=== PATIENT | female | born 1960 | race Caucasian/White ===

== ENCOUNTER 2019-02-10 10:09 | Outpatient (CLI) | payer BC ==
--- NOTE | 2019-02-14 18:05 | MMO ---
Bilateral MAMMO Bilat Screen [facility]. CLINICAL HISTORY: Patient is 59 years old and is seen for screening. The patient has the following family history of breast cancer: paternal aunt, at age 80. VIEWS: The views performed were: bilateral craniocaudal with tomosynthesis and bilateral mediolateral oblique with tomosynthesis. FILMS COMPARED: The present examination has been compared to prior imaging studies performed at [facility] on 11/13/2016, at [facility] on 01/04/2018, and at [facility] on 07/26/2013 and 09/05/2014. MAMMOGRAM FINDINGS: There are scattered fibroglandular densities. There are no suspicious masses, suspicious calcifications, or new areas of architectural distortion. IMPRESSION: THERE IS NO MAMMOGRAPHIC EVIDENCE OF MALIGNANCY. A ROUTINE FOLLOW-UP MAMMOGRAM IN 1 YEAR IS RECOMMENDED. THE RESULTS OF THIS EXAM WERE SENT TO THE PATIENT. ACR BI-RADS Category 1 - Negative MAMMOGRAPHY NOTE: 1. A negative mammogram report should not delay a biopsy if a dominant of clinically suspicious mass is present. 2. Approximately 10% to 15% of breast cancers are not detected by mammography. 3. Adenosis and dense breasts may obscure an underlying neoplasm.
== END 2019-02-10 10:10 | disposition home or self-care (01) ==
LOC: BICMAMMO 10:09
PROVIDERS: ATTEND Family Medicine
DX: Z12.31 Encounter for screening mammogram for malignant neoplasm of breast (principal); Z80.3 Family history of malignant neoplasm of breast
CPT/HCPCS: 77063; 77067

== ENCOUNTER 2019-03-07 14:24 | Outpatient (CLI) | payer BC ==
[2019-03-07 17:18] LABS: Anion Gap 14 mmol/L (10-20); BUN (Urea Nitrogen) 12 mg/dL (9.8-20.1); Calc. Creatinine Clearance 0 mL/min (70-130); Carbon Dioxide 28 mmol/L (22-29); Chloride 102 mmol/L (98-107); Estimated GFR-MDRD 74; Glucose 97 mg/dL (70-105); Potassium 3.9 mmol/L (3.5-5.1); Sodium 140 mmol/L (136-145)
== END 2019-03-07 14:25 | disposition home or self-care (01) ==
LOC: LABBT 14:24
PROVIDERS: ATTEND Obstetrics & Gynecology
DX: Z01.818 Encounter for other preprocedural examination (principal); N95.0 Postmenopausal bleeding
CPT/HCPCS: 80048; 93005; 93010

== ENCOUNTER 2019-03-14 09:19 | Day surgery (SDC) | payer BC ==
[2019-03-07 16:56] LABS: Hemoglobin 13.1 g/dL (12.0-16.0); Mean Corpuscular HGB CONC 33.6 g/dL (32.0-36.0); Mean Corpuscular Hemoglobin 31.9 pg (27.0-31.0); Mean Platelet Volume 7.2 fL (7.4-10.4); Platelet Count 232 thou/uL (130-400); RBC Distribution Width 11.4 % (11.5-14.5); Red Blood Cell (RBC) Count 4.12 mill/uL (4.20-5.40); White Blood Cell (WBC) Count 5.5 thou/uL (4.8-10.8)
[2019-03-07 17:00] VITALS: BMI 42.0
[2019-03-14] MEDS ORDERED: Fentanyl 100 MCG/2 ML VIAL ONE ×4 (11:31→14:07)
[2019-03-14] MEDS ORDERED: Ferric Subsulfate (ASTRINGYN) 8 ML VIAL ONE (12:58)
[2019-03-14] MEDS ORDERED: HYDROcodone/Acetaminophen 5/325 mg Tablet ONE (14:54)
[2019-03-14] MEDS ORDERED: Morphine 2 MG/ML SYRINGE ONE ×2 (15:22→15:39)
[2019-03-14] MEDS ORDERED: Dexamethasone 20 MG/5 ML VIAL ONE (17:07)
[2019-03-14] MEDS ORDERED: PROPOFOL 200 MG/20 ML VIAL ONE (17:07)
[2019-03-14] MEDS ORDERED: Ondansetron PF 4 MG/2 ML Vial ONE (17:07)
--- NOTE | 2019-03-15 12:20 | OP ---
DATE OF PROCEDURE: 03/14/2019 PREOPERATIVE DIAGNOSIS: Postmenopausal bleeding. POSTOPERATIVE DIAGNOSES: 1. Postmenopausal bleeding. 2. Endocervical/lower uterine segment polyp. PROCEDURE PERFORMED: Operative hysteroscopy with polypectomy and dilation and curettage. COMPLICATIONS: None. ANESTHESIA: General. HYSTEROSCOPIC FLUID DEFICIT: 270 mL. IV FLUIDS: 800 mL. URINE OUTPUT: 200 mL of urine straight catheterization prior to procedure. ESTIMATED BLOOD LOSS: 25 mL. FINDINGS: Normal external genitalia. Normal vaginal and cervical epithelium, 8 cm uterus. Benign-appearing endometrial/endocervical polyp. INDICATIONS FOR PROCEDURE: Ms. Nikkie Santamaria is a 59-year-old female who presented with a complaint of one month worth of postmenopausal bleeding. She had undergone endometrial biopsy in 2017, with benign pathology. She did not have bleeding for entire year and began having bleeding in January that was persistent. The patient then underwent pelvic ultrasound, and the uterus was approximately 8.5 cm in length, and the endometrial stripe was noted to be 9 mm. The patient was counseled for evaluation and desired to proceed with hysteroscopy with dilation and curettage. DESCRIPTION OF PROCEDURE: The patient was brought to the operating room. She was placed under general anesthesia. The patient placed in dorsal lithotomy position. She was prepped and draped in sterile fashion. An official time-out was performed. A single-sided speculum was placed in the vagina. The anterior aspect of the cervix was grasped using a single-tooth tenaculum. The uterus sounded to approximately 7.5 to 8 cm. The Jeison dilators were used to sequentially dilate the cervix and the TruClear hysteroscope was then inserted into the cervical canal and the findings were noted above. The endometrial tissue otherwise appeared normal with the exception of a benign-appearing polyp. The bilateral fallopian tube and ostia were evaluated and normal in appearance. The mini intrauterine shaver was then attempted to be inserted through the hysteroscope channel. However, it was resistant and was not able to be inserted. Testing after the surgery, it was noted that the hysteroscope was prohibiting the insertion of the shaver. Therefore, a blind dilation and curettage was initially performed removing the majority of the polyp. The hysteroscope was then reinserted and the remaining small pieces of the polyp was then removed directly using tonsils under direct visualization. The polyp was removed in its entirety. The hysteroscope was then removed. The patient was placed back in supine position. She was extubated without difficulty and transferred to recovery room in hemodynamically stable condition. All counts were correct x 2. Job ID: [id number] MTDD
== END 2019-03-14 17:20 | disposition home or self-care (01) ==
LOC: SDC 09:19
PROVIDERS: ATTEND Obstetrics & Gynecology
PROC: 0UJD8ZZ Inspection of Uterus and Cervix, Via Natural or Artificial Opening Endoscopic (ICD-10-PCS; principal; 2019-03-14)
PROC: 0UDB7ZX Extraction of Endometrium, Via Natural or Artificial Opening, Diagnostic (ICD-10-PCS; principal; 2019-03-14)
DX: N84.0 Polyp of corpus uteri (principal); F32.9 Major depressive disorder, single episode, unspecified; I10 Essential (primary) hypertension; E03.9 Hypothyroidism, unspecified; E78.5 Hyperlipidemia, unspecified; Z79.899 Other long term (current) drug therapy; Z98.84 Bariatric surgery status; Z98.890 Other specified postprocedural states
CPT/HCPCS: 85027; 86850; 86900; 86901; 88305; J2270; J3010

== ENCOUNTER 2019-10-28 08:30 | Outpatient (CLI) | payer BC ==
--- NOTE | 2019-10-28 09:45 | RAD ---
Barium swallow esophagram single column: DATE: 10/28/2019 HISTORY: 59-year-old female with "history of lap band, now with dysphagia" TECHNIQUE: Upright administration of thin liquid barium. Prone RICO straw administration of thin liquid barium. FINDINGS: The esophagus has normal motility, distensibility, and mucosal pattern. No moderate sized or large hi atal hernia. Lap band is present in the appropriate location and orientation. Thin liquid barium passes rapidly through the level of the lap band into the stomach. There is normal gastric emptying. No pouch dilatation. IMPRESSION: 1. Laparoscopic gastric band is loose. Barium passes rapidly from the esophagus into the stomach. 2. Otherwise negative.
== END 2019-10-28 08:31 | disposition home or self-care (01) ==
LOC: RAD 08:30
PROVIDERS: ATTEND Surgery
DX: R13.10 Dysphagia, unspecified (principal); Z98.890 Other specified postprocedural states
CPT/HCPCS: 74220

== ENCOUNTER 2020-02-13 11:33 | Outpatient (CLI) | payer BC ==
--- NOTE | 2020-02-13 12:52 | MMO ---
Bilateral MAMMO Bilat Screen [facility]. CLINICAL HISTORY: Patient is 60 years old and is seen for screening. The patient has the following family history of breast cancer: paternal aunt, at age 80. The patient has no personal history of cancer. VIEWS: The views performed were: bilateral craniocaudal with tomosynthesis and bilateral mediolateral oblique with tomosynthesis. FILMS COMPARED: The present examination has been compared to prior imaging studies performed at [facility] on 11/13/2016 and 02/10/2019, at [facility] on 01/04/2018, and at [facility] on 09/05/2014. This study has been interpreted with the assistance of computer-aided detection. MAMMOGRAM FINDINGS: There are scattered fibroglandular densities. There are stable benign appearing calcifications seen in both breasts. There are no suspicious masses, suspicious calcifications, or new areas of architectural distortion. IMPRESSION: THERE IS NO MAMMOGRAPHIC EVIDENCE OF MALIGNANCY. A ROUTINE FOLLOW-UP MAMMOGRAM IN 1 YEAR IS RECOMMENDED. THE RESULTS OF THIS EXAM WERE SENT TO THE PATIENT. ACR BI-RADS Category 2 - Benign finding MAMMOGRAPHY NOTE: 1. A negative mammogram report should not delay a biopsy if a dominant of clinically suspicious mass is present. 2. Approximately 10% to 15% of breast cancers are not detected by mammography. 3. Adenosis and dense breasts may obscure an underlying neoplasm. Reported by: CRISELDA COLES MD Electonically Signed: [id number]
== END 2020-02-13 11:34 | disposition home or self-care (01) ==
LOC: BICMAMMO 11:33
PROVIDERS: ATTEND Family Medicine
DX: Z12.31 Encounter for screening mammogram for malignant neoplasm of breast (principal); Z80.3 Family history of malignant neoplasm of breast
CPT/HCPCS: 77063; 77067

== ENCOUNTER 2023-03-25 14:17 | Outpatient (CLI) | payer BC ==
[2023-03-25 15:00] LABS: #Eosinphils 0.1 10x3/uL (0.0-0.5); #Monocytes 0.5 10x3/uL (0.0-1.1); #Neutrophils 3.3 10x3/uL (1.5-8.4); %Basophils 0.5 % (0.0-2.0); %Eosinophils 1.4 % (0.0-6.0); %Lymphocytes 38.9 % (18.0-47.0); %Monocytes 8.3 % (0.0-10.0); %Neutrophils 50.7 % (40.0-75.0); Hematocrit 39.1 % (34.9-44.5); Hemoglobin 13.5 g/dL (12.0-15.5); Mean Corpuscular HGB CONC 34.5 g/dL (32.0-36.0); Mean Corpuscular Volume 92.7 fl (81.6-98.3); Platelet Count 258 10x3/uL (150-450); RBC Distribution Width 11.9 % (11.5-14.5); Red Blood Cell (RBC) Count 4.22 10x6/uL (3.90-5.03); White Blood Cell (WBC) Count 6.5 10x3/uL (3.5-10.5)
== END 2023-03-25 14:18 | disposition home or self-care (01) ==
LOC: LABBT 14:17
PROVIDERS: ATTEND Orthopaedic Surgery Hand Surgery
DX: Z01.818 Encounter for other preprocedural examination (principal); G56.02 Carpal tunnel syndrome, left upper limb
CPT/HCPCS: 85025; 93005; 93010

== ENCOUNTER 2023-03-27 05:40 | Day surgery (SDC) | payer BC ==
[2023-03-25 14:47] VITALS: BMI 46.0
[2023-03-27] MEDS ORDERED: Bacitracin Zinc Ointment 30 gm TUBE ONE (06:55)
[2023-03-27] MEDS ORDERED: Bupivacaine PF 0.5% 30 ML VIAL ONE (06:55)
[2023-03-27] MEDS ORDERED: Sodium Chloride 0.9% 100 ML ONE (07:04)
[2023-03-27] MEDS ORDERED: CEFAZOLIN 2 GM VIAL ONE (07:04)
[2023-03-27] MEDS ORDERED: Ondansetron PF 4 MG/2 ML Vial ONE (07:13)
[2023-03-27] MEDS ORDERED: ePHEDrine Sulfate 50 MG/10 ML VIAL ONE (07:13)
[2023-03-27] MEDS ORDERED: Dexamethasone 20 MG/5 ML VIAL ONE (07:13)
[2023-03-27] MEDS ORDERED: Ketorolac Tromethamine 30 MG/ML VIAL ONE (07:13)
[2023-03-27] MEDS ORDERED: Lidocaine 1% PF 5 ML VIAL ONE (07:13)
[2023-03-27] MEDS ORDERED: PROPOFOL 200 MG/20 ML VIAL ONE (07:13)
== END 2023-03-27 09:18 | disposition home or self-care (01) ==
LOC: SDC 05:40
PROVIDERS: ATTEND Orthopaedic Surgery Hand Surgery
PROC: 01N50ZZ Release Median Nerve, Open Approach (ICD-10-PCS; principal; 2023-03-27)
DX: G56.02 Carpal tunnel syndrome, left upper limb (principal); I10 Essential (primary) hypertension; F32.A Depression, unspecified; Z88.8 Allergy status to other drugs, medicaments and biological substances; Z98.890 Other specified postprocedural states; Z79.899 Other long term (current) drug therapy
CPT/HCPCS: J1100; J1885; J2405; J2704; J3490; S0020